=== PATIENT | female | born 1980 | race Caucasian/White ===

== ENCOUNTER 2022-09-28 06:41 | Emergency (ER) | payer MEDICAID ==
--- NOTE | 2022-09-28 07:08 | ED Physician Documentation ---
PD HPI CHEST PAIN - Stated complaint Stated Complaint: RT RIB PX - Chief complaint Chief Complaint: Trauma Ch/Bk - History obtained from History obtained from: Patient - History of Present Illness Timing - onset: How many days ago (2) Timing - onset during: Light activity (she states she dropped her phone into trash bin and was reaching over edge to get it and levered pressure to right lower ribs, with pain and pop there. Continues to have pain today.) Timing - details: Abrupt onset, Still present Quality: Aching, Sharp, Pain Location: Right chest (lower right midaxillary line.) Radiation: No: Neck, Back, Abdominal Improved by: Rest Worsened by: Inspiration, Movement, Palpation Associated symptoms: No: Shortness of air, Nausea, Vomiting, Palpitations Similar symptoms before: Has not had sx before Recently seen: Not recently seen Review of Systems Constitutional: denies: Fever, Chills Nose: denies: Rhinorrhea / runny nose, Congestion Throat: denies: Sore throat Cardiac: denies: Palpitations Respiratory: denies: Dyspnea, Cough Musculoskeletal: denies: Extremity swelling PD PAST MEDICAL HISTORY - Past Medical History Past Medical History: Yes Cardiovascular: Hypertension Respiratory: None Psych: Depression, Anxiety Musculoskeletal: Fibromyalgia - Past Surgical History Past Surgical History: Yes General: Cholecystectomy Ortho: 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 - Present Medications Home Medications: Ambulatory Orders Medication Instructions Recorded Confirmed Acetaminophen [Acetaminophen Extra 500 mg PO QID PRN #40 tablet 09/28/22 Strength] Gabapentin [Neurontin] 800 mg PO BID 09/28/22 09/28/22 PARoxetine HCl [Paxil] 30 mg PO DAILY 09/28/22 09/28/22 Propranolol [Inderal] 30 mg PO BID 09/28/22 09/28/22 busPIRone [Buspar] 30 mg PO BID 09/28/22 09/28/22 oxyCODONE [Roxicodone] 5 mg PO Q8H PRN #20 tablet 09/28/22 - Allergies Allergies/Adverse Reactions: Allergies Allergy/AdvReac Type Severity Reaction Status Date / Time ibuprofen [From Motrin] Allergy Headache Verified 09/28/22 07:00 Sulfa (Sulfonamide Allergy Nausea Verified 09/28/22 07:00 Antibiotics) - Social History Does the pt smoke?: No Smoking Status: Never smoker Does the pt drink ETOH?: No Does the pt have substance abuse?: No - Immunizations Immunizations are current?: Yes - POLST Patient has POLST: No PD ED PE NORMAL - Vitals Vital signs reviewed: Yes - General General: Alert and oriented X 3, No acute distress, Well developed/nourished - Cardiac Cardiac: RRR, No murmur - Respiratory Respiratory: No respiratory distress, Clear bilaterally, Other (tender right lower ribs midaxillary line without crepitance nor deformity. ) - Abdomen Abdomen: Soft, Non tender Results - Vitals Vitals: Oxygen O2 Source Room air - Rads (name of study) ribs with chest Radiology: Prelim report reviewed (no displaced rib fractures seen. Normal lungs. ), See rad report PD MEDICAL DECISION MAKING - ED course Complexity details: reviewed results (no fractures nor lung injury seen. ), considered differential, d/w patient Departure - Departure Disposition: 01 Home, Self Care Clinical Impression: Rib pain on right side Condition: Stable Record reviewed to determine appropriate education?: Yes Instructions: ED Fx Rib Prescriptions: Acetaminophen [Acetaminophen Extra Strength] 500 mg PO QID PRN #40 tablet PRN Reason: Pain oxyCODONE [Roxicodone] 5 mg PO Q8H PRN #20 tablet PRN Reason: Pain Comments: Your lung appears normal without any puncture of the lung, bleeding around it or collapsed lung. There is no visible rib fractures on your x-rays. However your your location and character of the pain suggest likely a hairline/nondisplaced rib fracture. As such I would anticipate the worst pain for the first week or so and then steadily decreasing but take about 4 weeks for healing. Activity as tolerated. I would suggest Tylenol regularly 4 times a day for the next 7 to 10 days. To that add oxycodone 3 times daily if needed for worse pain. I sent your prescriptions to [facility] pharmacy in [place]. I am prescribing a short course of narcotic pain medication for you. These are potentially dangerous and addictive medications that should be used carefully. These medications may constipate you. Take an brmi-ltt-umboshs stool softener such as docusate twice daily with plenty of water while taking these medications. If you go 24 hours without a bowel movement, take [id number] MiraLAX, per package instructions. Do not drink or drive while taking these medications. If you received narcotic or sedating medications while in the emergency department do not drive for 24 hours. Store this medication in a safe, secure place and out of reach of children. It is a violation of federal law to give or sell this medication to another person or to use in a manner other than prescribed. The ED will not refill narcotic prescriptions, including prescriptions lost or stolen. You can dispose of unwanted medications at the [facility]'s office or at several pharmacies such as [facility]. Discharge Date/Time: 09/28/22 08:30
[2022-09-28] MEDS: ACETAMINOPHEN 325 MG TABLET PO STA (07:50)
[2022-09-28] MEDS: oxyCODONE 5 MG TABLET PO STA (07:50)
--- NOTE | 2022-09-28 08:09 | XRAY Report ---
PROCEDURE: Ribs w/PA Chest RT INDICATIONS: leaning over edge and felt pain right post/lat rib TECHNIQUE: 3 views of the right ribs were acquired, along with a single view chest. COMPARISON: None FINDINGS: Surgical changes and devices: Cholecystectomy clips are seen. An IVC filter is seen. Bones and chest wall: No fractures or dislocations. No suspicious bony lesions. Overlying soft tis sues appear unremarkable. Lungs and pleura: An incomplete inspiratory result is noted, with low lung volumes and crowding of t he vascular markings. No focal infiltrates are seen. No large pneumothorax or large pleural effusion can be seen. Mediastinum: Mediastinal contours appear normal. Heart size is normal. IMPRESSION: No displaced rib fracture is seen. Negative for pneumothorax. Postoperative change with cholecystectomy and IVC filter can be seen. Reviewed by: Juan Jolley MD on 09/28/2022 7:07 AM [facility] Approved by: Juan Jolley MD on 09/28/2022 7:07 AM [facility] Station ID: [id number]
[2022-09-28 08:32] VITALS: BP 126/79
== END 2022-09-28 08:30 | disposition home or self-care (01) ==
LOC: ED 06:41
DX: R07.81 Pleurodynia (principal)
CPT/HCPCS: 71101; 99283; A9270

== ENCOUNTER 2023-05-10 14:01 | Emergency (ER) | payer MEDICAID ==
[2023-05-10 14:13] VITALS: BP 110/58
--- NOTE | 2023-05-10 14:28 | ED Physician Documentation ---
History of Present Illness - Stated complaint Stated Complaint: RT LEG NUMB/PX - Chief complaint Chief Complaint: Ext Problem - Additonal information Additional information: 42-year-old female presents emergency department for evaluation of pain that begins in her right low back and then causes subsequent numbness of her right thigh. Symptoms began yesterday. Symptoms are worse when walking but improves with sitting. Patient denies any history of low back pain. No fevers. No saddle anesthesia, no loss of bowel or bladder function. No history of diabetes or injection drug use. Patient states to me that about 10 years ago she was involved in an accident which resulted in femoral patellar dislocation. She was subsequently hospitalized for quite some time. She ended up with a DVT in the right leg postoperatively and had to have an IVC filter placed. Then about 6 months later she was again diagnosed with a DVT in her left leg but this was then treated with Lovenox. She continues to have the IVC filter in place. No current anticoagulation. 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 - Present Medications Home Medications: Ambulatory Orders Medication Instructions Recorded Confirmed Gabapentin [Neurontin] 900 mg PO BID 09/28/22 09/28/22 PARoxetine HCL [Paxil] 30 mg PO DAILY 09/28/22 09/28/22 Propranolol [Inderal] 30 mg PO BID 09/28/22 09/28/22 busPIRone [Buspar] 30 mg PO BID 09/28/22 09/28/22 Venlafaxine HCl [Effexor Xr] 75 mg PO DAILY 05/10/23 05/10/23 cloNIDine [Catapres] 0.3 mg ORAL DAILY 05/10/23 05/10/23 - Allergies Allergies/Adverse Reactions: Allergies Allergy/AdvReac Type Severity Reaction Status Date / Time ibuprofen [From Motrin] Allergy Headache Verified 05/10/23 14:51 Sulfa (Sulfonamide Allergy Nausea Verified 07/08/23 14:51 Antibiotics) - Social History Does the pt smoke?: No Smoking Status: Never smoker Does the pt drink ETOH?: No Does the pt have substance abuse?: No - Immunizations Immunizations are current?: Yes - POLST Patient has POLST: No PD ED PE NORMAL - General General: Alert and oriented X 3, No acute distress - Respiratory Respiratory: No respiratory distress - Abdomen Abdomen: Normal bowel sounds, Soft, Non tender - Back Back: No spinal TTP (No tenderness was elicited with palpation of the thoracic or lumbar spine. She has full forward flexion of the lumbar spine. No point tenderness at the SI joint. Subjective numbness to the right lateral thigh. She has a mildly antalgic gait/limp right leg unchanged from baseline) - Derm Derm: Warm and dry, Other (Extensive scarring on the right leg) - Extremities Extremities: No deformity, No edema, No calf tenderness / cord, Other (No swelling noted of either lower extremity. 2+ DP pulses). No: No tenderness to palpate (mild tenderness with palpation of the right thight. ) - Neuro Neuro: Alert and oriented X 3 Eye Opening: Spontaneous Motor: Obeys Commands Verbal: Oriented GCS Score: 15 Results - Vitals Vitals: Vital Signs - 24 hr 05/10/23 14:06 Temperature 36.6 C Heart Rate 72 Respiratory 20 Rate Blood Pressure 110/58 L O2 Saturation 96 Oxygen O2 Source Room air - Rads (name of study) right leg US Relevant Findings:: Other (Per mineral technologist negative for DVT) PD Medical Decision Making - ED course Complexity details: reviewed results, re-evaluated patient, d/w patient ED course: 42-year-old female presents emergency department for evaluation of 2 days right low back pain with numbness of the right thigh and pain that radiates down to the leg. She does have a history of previous trauma that resulted in right femoral patellar dislocation requiring extensive surgery and hospitalization for which she subsequently developed a DVT in her right leg and then about 6 months later a DVT in her left leg. She does have an IVC filter in place. On exam today there is no swelling of the leg. She does have a mildly antalgic gait at baseline which is unchanged. No clinical red flags regarding back pain today. On exam no tenderness was elicited with palpation of the lower lumbar spine or at the SI joint though she had subjective numbness of the right thigh. Clinically she was concerned that this could represent a recurrent DVT and as such an ultrasound was obtained which did not show any DVT. Clinically I suspect that she likely either has herniated disc with sciatica or meralgia paresthetica. I discussed both of these concerns with the patient. I am recommending Tylenol for discomfort. She will follow closely with PCP for referral to PT. If not markedly improving after conservative treatment for 4 to 6 weeks at that point they could consider an MRI of the back though clinically 1 is not indicated today as there is no concern for infection, epidural abscess or cauda equina. Departure - Departure Disposition: 01 Home, Self Care Clinical Impression: Numbness of right anterior thigh Right low back pain Qualifiers: Chronicity: acute Sciatica presence: unspecified whether sciatica present Qualified Code(s): M54.50 - Low back pain, unspecified Condition: Stable Instructions: ED Sciatica Comments: You came to the ED because you have pain in your low back causing numbness of the right thigh. The ultrasound showed now evidence of DVT. As discussed at the bedside I suspected the cause of the pain in the low back and associated numbness in the right thigh could be a condition called meralgia paresthetica. This is inflammation of the lateral femoral cutaneous nerve. It is also possible that you could have a herniated disc causing some sciatica or inflammation of the sciatic nerve as it runs down the length of your leg. In general I would recommend conservative treatment for your back pain and thigh numbness. You can take Tylenol 500 mg with food 2-3 times a day for discomfort. I would discuss this ED visit with your primary doctor as you may benefit from referral to physical therapy. Often physical therapy and specific stretching exercises can help alleviate the symptoms. If conservative therapy fails to improve your symptoms over the course of 4 to 6 weeks, or you develop any numbness in your genital area or have weakness in your legs then at that point consideration of an MRI could be discussed with your primary doctor. You also reported to me that you have had an IVC filter in place now for more than 10 years. I encourage you to also discuss the presence of this filter with your primary doctor. In some instances it is important to remove the filters as there are some case studies when filters have been left in for too long they can cause complications. Please discuss this with your primary doctor.
--- NOTE | 2023-05-10 15:16 | Ultrasound Report ---
PROCEDURE: Duplex Ext Veins Right INDICATIONS: rigth thigh, leg pain; hx of DVT 10 yrs ago TECHNIQUE: Real-time imaging, as well as color and pulse Doppler interrogation, were performed of the lower extr emity deep veins from the inguinal ligament to the popliteal fossa. COMPARISON: None. FINDINGS: The deep veins are normally compressible, and free of intraluminal thrombus. Color and pu lse Doppler demonstrate normal phasic intraluminal flow. There is normal augmentation response to di stal compression maneuver. IMPRESSION: No DVT in the right lower extremity. Reviewed by: Shane Méndez on 05/10/2023 2:15 PM [facility] Approved by: Shane Méndez on 05/10/2023 2:15 PM [facility] Station ID: [id number]
== END 2023-05-10 15:39 | disposition home or self-care (01) ==
LOC: ED 14:01
DX: M54.50 Low back pain, unspecified (principal); R20.0 Anesthesia of skin; Z95.828 Presence of other vascular implants and grafts; Z86.718 Personal history of other venous thrombosis and embolism
CPT/HCPCS: 99283; 99284